=== PATIENT | male | born 1945 | race Caucasian/White ===

== ENCOUNTER 2019-04-18 09:44 | Inpatient (IN) | payer MEDICARE, BC ==
[~2019-04-18] VITALS: Ht 188 cm; Wt 79.5 kg
[2019-04-18] VITALS (10 sets, daily range): BP systolic 105–144; BP diastolic 55–88; PULSE 55–91; TEMP 97.6–98
[~2019-04-18 09:44] MED LIST: ALBUTEROL0.09 MG/A1 IH; ANTIVERT 25MG25 MG PO; CEPHALEXIN500 M1 PO; IBUPROFEN600 MG PO; NORCO 325 MG-51 TAB PO; PEPCID AC 10MG10 MG PO; TAMIFLU 75MG75 MG PO
[2019-04-18 10:51] LABS: PROTHROMBIN TIME 12.1 SECONDS (9.7-12.8)
[2019-04-18 10:54] LABS: BASO # 0.1 (0.0-0.2); BASO % 0.7 % (0.0-2.0); EOS # 0.5 (0.0-0.7); EOS % 5.4 % (0-4.0); GRAN # 5.4 (1.4-6.5); GRAN % 64.6 % (42.2-75.2); HEMATOCRIT 45.3 % (42.0-52.0); HEMOGLOBIN 15.3 g/dl (13.5-18.0); LYMPH # 1.7 (1.2-3.4); LYMPH % 20.8 % (20.0-51.0); MEAN CELL VOLUME 99 fl (80.0-100.0); MEAN CORPUSCULAR HEMOGLOBIN 33 pg (27.0-31.0); MEAN CORPUSCULAR HGB CONC 34 g/dl (33.0-37.0); MEAN PLATELET VOLUME 9.2 fl (7.4-10.4); MONO # 0.7 (0.1-0.6); MONO % 8.1 % (1.7-9.3); PLATELET COUNT 206 K/mm3 (130-400); RED BLOOD COUNT 4.58 M/mm3 (4.20-5.60); REDCELL DISTRIBUTION WIDTH-CV 13.2 % (11.5-14.5)
[2019-04-18 10:57] LABS: ALANINE AMINOTRANSFERASE 7 U/L (21-72); ALKALINE PHOSPHATASE 154 U/L (50-136); ANION GAP 11 mmol/L (7-16); AST,SGOT 24 U/L (15-37); BILIRUBIN,TOTAL 0.9 mg/dL (0.0-1.0); BLOOD UREA NITROGEN 15 mg/dL (9-20); CALCIUM 8.9 mg/dL (8.4-10.2); CARBON DIOXIDE 28 mmol/L (22-30); CHLORIDE 102 mmol/L (98-107); CREATININE, serum 0.87 (0.66-1.25); GLUCOSE 96 mg/dL (74-106); SODIUM 141 mmol/L (137-145); TOTAL PROTEIN 7.3 gm/dL (6.4-8.2)
[2019-04-18 11:09] LABS: TROPONIN-I < 0.012 ng/mL (0.000-0.035)
[2019-04-18] MEDS ORDERED: NITROSTAT0.4 MG/TAB SL (13:33)
[2019-04-18] MEDS ORDERED: ASPIRIN 81M81 MG/TA2 PO (14:32)
[2019-04-18] MEDS ORDERED: PRILOTC (14:33)
--- NOTE | 2019-04-18 16:05 | NUR ---
SEE MERGE DOCUMENTATION FOR MEDICATION ADMINISTRATION TIMES AND INTRA/POST PROCEDURE SEDATION ASSESSMENTS.
--- NOTE | 2019-04-18 17:15 | NUR ---
Pt arrived to floor at this time via bed with [facility] lab technician staff. awake and alert. Resting in bed with R arm in TR band and protector in place, cap refill less than 3, pulse +2 in R radial, site has no signs of bleeidng. Pt wanting to get up, educated on 1 hour bed rest and 2 hour slow deflating the baloon in place. Educated on room, oriented, VSS, will continue to monitor.
--- NOTE | 2019-04-18 17:26 | NUR ---
Pt transferred to 308 at this time. Prior to transfer, pt c/o numbness to right hand. TR band in place over right radial access site. TR band reduced to 11mL air. Right hand noted slightly cooler than left. Site assessed and pulses palpated by Dr Long prior to transfer; no new interventions ordered, instructions to continue monitoring. Pt transferred to medical unit, bedside handoff to PACO Apodaca. VS monitor in place with VS's WNL. Right radial site assessed with no bleeding, bruising, or signs of hematoma noted. Pt states numbness slightly improved. Cap refill <3 sec. Education provided to pt regarding s/sx to report to the RN. All questions answered at this time.
--- NOTE | 2019-04-18 19:25 | NUR ---
Pt doing well, ate supper well. Deflated 2 from the baloon on R radial, no signs of bleeding. Denies needs, pain, numbness totally resolved. Bedside shift report given to PACO Adame who will resume care.
--- NOTE | 2019-04-18 20:10 | NUR ---
Shift assessment complete. Pt resting in bed, awake, a&o, cooperative c cares. Pt denies pain or any other c/o. INT patent. Tele in place. R rad heart cath site noted; air removed from tr band et band removed, bandaid applied et remains C/D/I. Pt denies needs. Call light in reach, will continue to monitor.
[2019-04-19 03:01] VITALS: BP 115/56; PULSE 68; TEMP 98.4
[2019-04-19 06:08] LABS: BASO # 0.1 (0.0-0.2); BASO % 0.8 % (0.0-2.0); EOS # 0.5 (0.0-0.7); GRAN # 4.9 (1.4-6.5); GRAN % 61.5 % (42.2-75.2); HEMATOCRIT 45.5 % (42.0-52.0); HEMOGLOBIN 15.3 g/dl (13.5-18.0); LYMPH # 1.7 (1.2-3.4); LYMPH % 21.7 % (20.0-51.0); MEAN CELL VOLUME 99 fl (80.0-100.0); MEAN CORPUSCULAR HEMOGLOBIN 33 pg (27.0-31.0); MEAN CORPUSCULAR HGB CONC 34 g/dl (33.0-37.0); MEAN PLATELET VOLUME 9.3 fl (7.4-10.4); MONO # 0.8 (0.1-0.6); MONO % 9.6 % (1.7-9.3); PLATELET COUNT 196 K/mm3 (130-400); RED BLOOD COUNT 4.62 M/mm3 (4.20-5.60); REDCELL DISTRIBUTION WIDTH-CV 13.1 % (11.5-14.5)
[2019-04-19 06:25] LABS: CALCIUM 8.4 mg/dL (8.4-10.2); CHOLESTEROL RISK RATIO 5.8; CREATININE, serum 0.86 (0.66-1.25)
[2019-04-19 07:31] VITALS: BP 122/60; PULSE 67; TEMP 97.2
--- NOTE | 2019-04-19 08:03 | NUR ---
Pt assessment complete. Pt is sitting up in bed upon entry, he is A/O x3. His breathing is even and unlabored on RA. Pt denies SOB. He denies any pain, chest pressure or palpitations. No N/T. Pt eager to discharge, POC discussed with patient. No further needs at this time. Call light within reach.
[2019-04-19] MEDS ORDERED: PLAVIX 75MG TAB75 MG PO (08:19)
[2019-04-19] MEDS ORDERED: LIPITOR 40MG TA40 MG PO (08:19)
[2019-04-19] MEDS ORDERED: ZESTRIL2.5 MG PO (08:48)
--- NOTE | 2019-04-19 08:57 | NUR ---
SW's met with the patient to discuss discharge plan. The patient lives alone in [place]. He states that his girlfriend, Cristiana Talamantes (ph#[phone]), lives next door to him. He states that he has two children and that they live in [facility]. He reports independence with ADLs and does not have any DME. The patient's PCP is Dr. Jaja Fernandes and he receives his medications at the [facility]. He reports no difficulties obtaining his meds. The patient does not have advanced directives completed, but he was interested in obtaining a form for DPOA-HC. HARSH provided. The patient plans to return back home upon discharge. No additional needs at this time.
--- NOTE | 2019-04-19 10:55 | NUR ---
Discharge paperwork and instructions reviewed with patient. All questions answered at this time. IV to RAC dc'd catheter tip intact. Pt walked out of facility by staff at this time.
== END 2019-04-19 10:56 | disposition home or self-care (01) | DRG 247 ==
LOC: COL.ER 09:44 → MEDICAL 14:26 → COL.ER 14:26 → MEDICAL 14:26
PROVIDERS: Emergency Medicine; Physician Assistant; ADMIT Student in an Organized Health Care Education/Training Program
PROC: 4A023N7 Measurement of Cardiac Sampling and Pressure, Left Heart, Percutaneous Approach (ICD-10-PCS; principal; 2019-04-18)
PROC: 027034Z Dilation of Coronary Artery, One Artery with Drug-eluting Intraluminal Device, Percutaneous Approach (ICD-10-PCS; 2019-04-18)
PROC: B211YZZ Fluoroscopy of Multiple Coronary Arteries using Other Contrast (ICD-10-PCS; 2019-04-18)
DX: I21.4 Non-ST elevation (NSTEMI) myocardial infarction (principal); I44.0 Atrioventricular block, first degree; I45.10 Unspecified right bundle-branch block; J44.9 Chronic obstructive pulmonary disease, unspecified; I25.10 Atherosclerotic heart disease of native coronary artery without angina pectoris; F17.210 Nicotine dependence, cigarettes, uncomplicated; K21.9 Gastro-esophageal reflux disease without esophagitis; M16.11 Unilateral primary osteoarthritis, right hip; Z79.82 Long term (current) use of aspirin
CPT/HCPCS: 99222-AI; 99239; C1725; C1769; C1874; C1887; C9600; J1644; J2250; J2405; J3010; Q9967

== ENCOUNTER 2019-08-08 15:45 | Outpatient (RCR) | payer MEDICARE, BC ==
[~2019-08-08 15:45] MED LIST changes: +ASPIRIN 81M81 MG/TA2 PO; +LIPITOR 40MG TA40 MG PO; +NITROSTAT0.4 MG/TAB SL; +PLAVIX 75MG TAB75 MG PO; +PRILOTC; +ZESTRIL2.5 MG PO
== END 2019-08-09 | disposition home or self-care (01) ==
LOC: COL.CR
DX: I21.4 Non-ST elevation (NSTEMI) myocardial infarction (principal); Z48.812 Encounter for surgical aftercare following surgery on the circulatory system; Z95.5 Presence of coronary angioplasty implant and graft; J44.9 Chronic obstructive pulmonary disease, unspecified; F17.210 Nicotine dependence, cigarettes, uncomplicated; K21.9 Gastro-esophageal reflux disease without esophagitis

== ENCOUNTER → 2019-08-15 | Outpatient (CLI) | payer MEDICARE, BC | LOC: COL.CARD 09:49 | DX: R00.1 Bradycardia, unspecified (principal) ==

== ENCOUNTER 2019-08-22 15:23 | Outpatient (RCR) | payer MEDICARE, BC | END 2019-08-24 05:59 | disposition home or self-care (01) | LOC: COL.CR 15:23 | DX: I21.4 Non-ST elevation (NSTEMI) myocardial infarction (principal) ==